=== PATIENT | female | born 1990 | race Hispanic/Latino ===

== ENCOUNTER 2023-03-27 13:27 | Emergency (ER) | payer MEDICAID, SELFPAY ==
[2023-03-27 14:08] LABS: BHCG - Serum Negative (NEGATIVE); Pregs Control Bar Appear? YES (CONTROL BAR)
[2023-03-27 14:09] LABS: Pregs Control Background? CLEAR/WHITE (CLR/WHITE)
[2023-03-27] MEDS ORDERED: Sodium Chloride 0.9% 1,000 ML ONE (14:22)
== END 2023-03-27 16:20 | disposition home or self-care (01) ==
LOC: MADERS 13:27
DX: T14.8XXA Other injury of unspecified body region, initial encounter (principal); S60.457A Superficial foreign body of left little finger, initial encounter; R07.89 Other chest pain; R20.2 Paresthesia of skin; M54.2 Cervicalgia; W45.8XXA Other foreign body or object entering through skin, initial encounter
CPT/HCPCS: 70450; 71046; 71250; 72125; 74177; 84703; J7050